=== PATIENT | female | born 1990 | race Caucasian/White ===

== ENCOUNTER 2019-08-01 03:05 | Emergency (ER) | payer SELFPAY ==
[~2019-08-01] VITALS: Ht 165.1 cm; Wt 55.8 kg
[2019-08-01 03:29] VITALS: Ht 165.1 cm; Wt 55.8 kg
[2019-08-01 06:54] VITALS: BP 128/74
== END 2019-08-01 06:54 | disposition home or self-care (01) ==
LOC: ED 03:05
DX: F11.23 Opioid dependence with withdrawal (principal); J45.909 Unspecified asthma, uncomplicated; I10 Essential (primary) hypertension; Z88.1 Allergy status to other antibiotic agents

== ENCOUNTER 2019-08-10 00:57 | Emergency (ER) | payer SELFPAY ==
[~2019-08-10] VITALS: Ht 162.6 cm; Wt 55.8 kg
[2019-08-10 00:58] VITALS: Ht 162.6 cm; Wt 55.8 kg
[2019-08-10 15:19] VITALS: BP 134/87
== END 2019-08-10 15:20 | disposition home or self-care (01) ==
LOC: ED 00:57
DX: F15.159 Other stimulant abuse with stimulant-induced psychotic disorder, unspecified (principal); F11.159 Opioid abuse with opioid-induced psychotic disorder, unspecified; J45.909 Unspecified asthma, uncomplicated; I10 Essential (primary) hypertension; Z88.1 Allergy status to other antibiotic agents
CPT/HCPCS: 36415; G0480